=== PATIENT | female | born 1945 | race Caucasian/White ===

== ENCOUNTER 2017-06-23 12:25 | Inpatient (IN) | payer MEDICARE ==
[2017-06-23 12:25] VITALS: BMI 32.0
[2017-06-23] MEDS ORDERED: Sodium Chloride 0.9% 500 ML IV ONE (12:33)
--- NOTE | 2017-06-23 12:41 | C.PDOC ---
History Of Present Illness 71 yr old female brought in via EMS, presents to the ER s/p near syncopal episode. Patient is accompanied by daughter who states, the patient was ironing at home when she became dizzy and fell to the ground. Daughter states the patient was confused for few minutes but became more alert and oriented with time. Patient currently denies of chest pain, however states she had chest pain yesterday. Patient denies LOC, fever, SOB, nausea, vomiting, abdominal pain, neck pain, weakness or numbness. Time Seen by Provider: 06/23/17 12:31 Chief Complaint (Nursing): Dizziness/Lightheaded History Per: Patient, Family (Daughter) History/Exam Limitations: no limitations Onset/Duration Of Symptoms: Sudden Onset Activity At Onset Of Symptoms: Standing Past Medical History Reviewed: Historical Data, Nursing Documentation, Vital Signs Vital Signs: Last Vital Signs Temp 97.9 F 06/23/17 12:30 Pulse 44 L 06/23/17 16:38 Resp 16 06/23/17 16:38 BP 125/59 L 06/23/17 16:38 Pulse Ox 100 06/23/17 16:38 - Medical History PMH: Arthritis, HTN, Hypercholesterolemia, Parkinson's Disease - [facility] Procedures APPLICATION OF SPLINT (05/03/13) Family History: States: No Known Family Hx - Social History Hx Tobacco Use: No Hx Alcohol Use: No Hx Substance Use: No - Immunization History Hx Tetanus Toxoid Vaccination: No Hx Influenza Vaccination: No Hx Pneumococcal Vaccination: No Review Of Systems Except As Marked, All Systems Reviewed And Found Negative. Constitutional: Negative for: Fever Cardiovascular: Positive for: Chest Pain (None currently) Respiratory: Negative for: Shortness of Breath Gastrointestinal: Negative for: Nausea, Vomiting, Abdominal Pain Musculoskeletal: Negative for: Neck Pain Neurological: Positive for: Dizziness. Negative for: Weakness, Numbness Physical Exam - Physical Exam Appears: Non-toxic, No Acute Distress Skin: Warm, Dry, No Rash Head: Atraumatic, Normacephalic Oral Mucosa: Moist Neck: Normal, Normal ROM, Supple Chest: Symmetrical, No Tenderness Cardiovascular: Rhythm Regular, No Murmur Respiratory: Normal Breath Sounds, No Rales, No Rhonchi, No Wheezing Gastrointestinal/Abdominal: Normal Exam, Soft, No Tenderness, No Guarding, No Rebound Back: Normal Inspection, No CVA Tenderness Extremity: Normal ROM, No Swelling Neurological/Psych: Oriented x3, Normal Speech ED Course And Treatment - Laboratory Results Result Diagrams: 06/23/17 12:44 06/23/17 12:44 ECG: Interpreted By Me, Viewed By Me ECG Rhythm: Sinus Bradycardia Interpretation Of ECG: RBBB. Left axis deviation. Nonspecific T wave changes. Rate From EC (BPM) O2 Sat by Pulse Oximetry: 93 (RA) Pulse Ox Interpretation: Normal - Other Rad CXR X-Ray: Viewed By Me, Read By Radiologist Interpretation: PROCEDURE: CHEST RADIOGRAPH, 1 VIEW Technique: Single view portable semi erect @ 12:50. HISTORY: chest pain. COMPARISON: 01/31/2013. FINDINGS: LUNGS: Clear. PLEURA: No pneumothorax or pleural fluid seen. CARDIOVASCULAR: Cardiomegaly. No evidence of acute, significant cardiovascular disease. OSSEOUS STRUCTURES: No significant abnormalities. VISUALIZED UPPER ABDOMEN: Normal. OTHER FINDINGS: None. IMPRESSION: No active disease. No acute/significant interval changes. . Please note: No preliminary report/ innterpretation of this examination provided by emergency department personnel. - CT Scan/US CT - Head Other Rad Studies (CT/US): Read By Radiologist, Radiology Report Reviewed CT/US Interpretation: PROCEDURE: CT HEAD WITHOUT CONTRAST. HISTORY: dizziness. COMPARISON: Noncontrast head CT performed 02/27/13. TECHNIQUE: Axial computed tomography images were obtained through the head/brain without intravenous contrast. Radiation dose: Total exam DLP = 839.17 mGy-cm. This CT exam was performed using one or more of the following dose reduction techniques: Automated exposure control, adjustment of the mA and/or kV according to patient size, and/or use of iterative reconstruction technique. FINDINGS: HEMORRHAGE: No intracranial hemorrhage. BRAIN: Diffuse atrophy with prominence of the ventricles and sulci noted. No mass effect or edema. Bilateral basal ganglia calcifications. Intracranial atherosclerotic calcifications. Scattered white matter hypodensities, which are nonspecific, but often seen with chronic microvascular ischemic disease. Please note that MRI with diffusion imaging is more sensitive in the detection of acute ischemic event. VENTRICLES: No hydrocephalus. CALVARIUM: Unremarkable. PARANASAL SINUSES: Mucosal thickening and opacification involving the ethmoid air cells, sphenoid sinuses, and mbzq-[id number]-imps-right maxillary sinuses. MASTOID AIR CELLS: Unremarkable as visualized. No inflammatory changes. OTHER FINDINGS: None. IMPRESSION: Generalized atrophy. Nonspecific white matter changes. Mucosal thickening and opacification involving the ethmoid air cells, sphenoid sinuses, and xntf-iqfeatc-bgnt-right maxillary sinuses. Correlate clinically for sinusitis. Medical Decision Making Medical Decision Making: DDx: Dizziness and chest pain. PLAN: * CT - Head * CXR * EKG * Troponin * CBC * CMP * Urinalysis * Sodium Chloride IV NOTE: * Initially spoke to Dr. Birmingham regarding the patient who agreed to admit the patient under her services. However, I was informed later on Dr. Birmingham does not admit to [facility] and the patient is to go to Medicine documentation liaison. * Spoke to Dr. Gregg who agreed to admit patient for Bradycardia and dizziness. Disposition Discussed With Dr.: Valencia Borges Doctor Will See Patient In The: Hospital Counseled Patient/Family Regarding: Studies Performed, Diagnosis - Disposition Disposition: HOSPITALIZED Disposition Time: 14:30 Condition: FAIR - Clinical Impression Clinical Impression: Dizziness, Near syncope, Bradycardia - Scribe Statement The provider has reviewed the documentation as recorded by the Kezia[facility] S[facility] Muse Provider Attestation: All medical record entries made by the Lev were at my direction and personally dictated by me. I have reviewed the chart and agree that the record accurately reflects my personal performance of the history, physical exam, medical decision making, and the department course for this patient. I have also personally directed, reviewed, and agree with the discharge instructions and disposition.
[2017-06-23] MEDS ORDERED: Sodium Chloride 0.9% 1,000 ML ONE (12:43)
[2017-06-23 12:52] LABS: EOS # 0.3 K/uL (0.0-0.7); EOS % 6.2 % (0.0-4.0); LYMPH % 20.6 % (20.0-40.0); MEAN CORPUSCULAR HEMOGLOBIN 29.8 pg (27.0-31.0); MEAN CORPUSCULAR HGB CONC 33.7 g/dL (33.0-37.0); MONO # 0.3 K/uL (0.0-0.8); MONO % 6.8 % (0.0-10.0); NRBC % 0.1 % (0.0-2.0); RED CELL DISTRIBUTION WIDTH 15.3 % (11.5-14.5); WHITE BLOOD COUNT 4.6 K/uL (4.8-10.8)
[2017-06-23 12:53] LABS: MEAN CELL VOLUME 88.5 fL (81.0-99.0)
[2017-06-23 13:02] LABS: CHLORIDE 106 mmol/L (98-107); SODIUM 139 mmol/L (132-148)
[2017-06-23 13:03] LABS: POTASSIUM 3.7 mmol/L (3.6-5.2)
[2017-06-23 13:05] LABS: ALKALINE PHOSPHATASE 66 U/L (38-126); ALT/SGPT 16 U/L (9-52); AST/SGOT 10 U/L (14-36); BILIRUBIN,TOTAL 0.7 mg/dL (0.2-1.3); BLOOD UREA NITROGEN 34 mg/dL (7-17); CARBON DIOXIDE 22 mmol/L (22-30); GFR AFRICAN-AMERICAN 49
[2017-06-23 13:06] LABS: CALCIUM 8.7 mg/dl (8.6-10.4); GLUCOSE,RANDOM 97 mg/dL (65-105)
--- NOTE | 2017-06-23 13:28 | CT ---
PROCEDURE: CT HEAD WITHOUT CONTRAST. HISTORY: dizziness COMPARISON: Noncontrast head CT performed 02/27/13 TECHNIQUE: Axial computed tomography images were obtained through the head/brain without intravenous contrast. Radiation dose: Total exam DLP = 839.17 mGy-cm. This CT exam was performed using one or more of the following dose reduction techniques: Automated exposure control, adjustment of the mA and/or kV according to patient size, and/or use of iterative reconstruction technique. FINDINGS: HEMORRHAGE: No intracranial hemorrhage. BRAIN: Diffuse atrophy with prominence of the ventricles and sulci noted. No mass effect or edema. Bilateral basal ganglia calcifications. Intracranial atherosclerotic calcifications. Scattered white matter hypodensities, which are nonspecific, but often seen with chronic microvascular ischemic disease. Please note that MRI with diffusion imaging is more sensitive in the detection of acute ischemic event. VENTRICLES: No hydrocephalus. CALVARIUM: Unremarkable. PARANASAL SINUSES: Mucosal thickening and opacification involving the ethmoid air cells, sphenoid sinuses, and mtaf-xxmkieh-vglt-right maxillary sinuses. MASTOID AIR CELLS: Unremarkable as visualized. No inflammatory changes. OTHER FINDINGS: None. IMPRESSION: Generalized atrophy. Nonspecific white matter changes. Mucosal thickening and opacification involving the ethmoid air cells, sphenoid sinuses, and pkck-eyozsrs-tltl-right maxillary sinuses. Correlate clinically for sinusitis.
--- NOTE | 2017-06-23 13:31 | RAD ---
PROCEDURE: CHEST RADIOGRAPH, 1 VIEW Technique: Single view portable semi erect @ 12:50. HISTORY: chest pain COMPARISON: 01/31/2013 FINDINGS: LUNGS: Clear. PLEURA: No pneumothorax or pleural fluid seen. CARDIOVASCULAR: Cardiomegaly. No evidence of acute, significant cardiovascular disease. OSSEOUS STRUCTURES: No significant abnormalities. VISUALIZED UPPER ABDOMEN: Normal. OTHER FINDINGS: None. IMPRESSION: No active disease. No acute/significant interval changes. Please note: No preliminary report/ innterpretation of this examination provided by emergency department personnel. Move
--- NOTE | 2017-06-23 20:08 | CP.PCM.CON ---
History of Present Illness - History of Present Illness History of Present Illness: I was asked to see patient by Dr Gregg. Patient is a 71 year old female with a PMH HTN, previous CVA who presents with dizziness and syncope. The patient states she has had recent dizziness and lighheadedness. The symptoms have become progressive. The patient had a near syncopeal event. She was found to have sinus bradycardia in the ER. She denies current chest pain. Review of Systems - Constitutional Constitutional: absent: As Per HPI, Anorexia, Chills, Daytime Sleepiness, Excessive Sweating, Fatigue, Fever, Frequent Falls, Headache, Increased Appetite , Lethargy, Malaise, Night Sweats, Snoring, Sleep Apnea, Weight Gain, Weight Loss, Weakness, Other - EENT Eyes: absent: As Per HPI, Blind Spots, Blurred Vision, Change in Vision, Decreased Night Vision, Diplopia, Discharge, Dry Eye, Exophthalmos, Floaters, Irritation, Itchy Eyes, Loss of Peripheral Vision, Pain, Photophobia, Requires Corrective Lenses, Sees Flashes, Spots in Vision, Tunnel Vision, Other Visual Disturbances, Loss of Vision, Other Ears: absent: As Per HPI, Decreased Hearing, Ear Discharge, Ear Pain, Tinnitus, Abnormal Hearing, Disequilibrium, Dizziness, Other Nose/Mouth/Throat: absent: As Per HPI, Epistaxis, Nasal Congestion, Nasal Discharge, Nasal Obstruction, Nasal Trauma, Nose Pain, Post Nasal Drip, Sinus Pain, Sinus Pressure, Bleeding Gums, Change in Voice, Dental Pain, Dry Mouth, Dysphagia, Halitosis, Hoarsness, Lip Swelling, Mouth Lesions, Mouth Pain, Odynophagia, Sore Throat, Throat Swelling, Tongue Swelling, Facial Pain, Neck Pain, Neck Mass, Other - Cardiovascular Cardiovascular: Dyspnea, Syncope - Respiratory Respiratory: absent: As Per HPI, Cough, Dyspnea, Hemoptysis, Dyspnea on Exertion , Wheezing, Snoring, Stridor, Pain on Inspiration, Chest Congestion, Excessive Mucous Production, Change in Mucous Color, Pain with Coughing, Other - Gastrointestinal Gastrointestinal: absent: As Per HPI, Abdominal Pain, Belching, Bloating, Change in Bowel Habits, Change in Stool Character, Coffee Ground Emesis, Constipation, Cramping, Diarrhea, Dyspepsia, Dysphagia, Early Satiety, Excessive Flatus, Fecal Incontinence, Heartburn, Hematemesis, Hematochezia, Loose Stools, Melena, Nausea, Odynophagia, Temesmus, Vomiting, Other - Musculoskeletal Musculoskeletal: absent: As Per HPI, Abnormal Gait, Arthralgias, Atrophy, Back Pain, Deformity, Joint Swelling, Limited Range of Motion, Loss of Height, Muscle Cramps, Muscle Weakness, Myalgias, Neck Pain, Numbness, Radiating Pain into Limb, Stiffness, Tingling, Other - Integumentary Integumentary: absent: As Per HPI, Acne, Alopecia, Bleeding Lesions, Change in Hair, Change in Nails, Change in Pigmentation, Changing Lesions, Dry Skin, Erythema, Furuncle, Hirsutism, Lesions, New Lesions, Non-Healing Lesions, Photosensitivity, Pruritus, Rash, Skin Pain, Skin Ulcer, Sores, Striae, Swelling , Unusual Bruising, Wounds, Jaundice, Other - Neurological Neurological: absent: As Per HPI, Abnormal Gait, Abnormal Hearing, Abnormal Movements, Abnormal Speech, Behavioral Changes, Burning Sensations, Confusion, Convulsions, Disequilibrium, Dizziness, Numbness, Focal Weakness, Frequent Falls , Headaches, Lack of Coordination, Loss of Vision, Memory Loss, Paresthesias, Radicular Pain, Restless Legs, Sensory Deficit, Syncope, Tingling, Tremor, Vertigo, Weakness, Other Visual Disturbances, Other - Psychiatric Psychiatric: absent: As Per HPI, Abnormal Sleep Pattern, Anhedonia, Anxiety, Auditory Hallucinations, Behavioral Changes, Change in Appetite, Change in Libido, Confusion, Depression, Difficulty Concentrating, Hallucinations, Homicidal Ideation, Hopelessness, Irritability, Memory Loss, Mood Swings, Panic Attacks, Paranoia, Suicidal Ideation, Visual Hallucinations, Tactile Hallucinations, Other - Endocrine Endocrine: absent: As Per HPI, Change in Body Appearance, Change in Libido, Cold Intolorance, Deepening of Voice, Excessive Sweating, Fatigue, Flushing, Heat Intolorance, Increase in Ring/Shoe/Hat Size, Palpitations, Polydipsia, Polyphagia, Polyuria, Other - Hematologic/Lymphatic Hematologic: absent: As Per HPI, Easy Bleeding, Easy Bruising, Lymphadenopathy, Other Past Patient History - Past Social History Smoking Status: Never Smoked - CARDIAC Hx Hypercholesterolemia: Yes Hx Hypertension: Yes - NEUROLOGICAL Hx Parkinson's Disease: Yes - MUSCULOSKELETAL/RHEUMATOLOGICAL Hx Arthritis: Yes - PSYCHIATRIC Hx Substance Use: No - SURGICAL HISTORY Hx Eye Surgery: Yes (Glaucoma) Other/Comment: Bladder Mesh - ANESTHESIA Hx Anesthesia: Yes Hx Anesthesia Reactions: No Meds Allergies/Adverse Reactions: Allergies Allergy/AdvReac Type Severity Reaction Status Date / Time No Known Allergies Allergy Verified 06/23/17 12:37 - Medications Medications: Current Medications Carbidopa/Levodopa (Sinemet) 1 tab PO QID [facility] Enoxaparin Sodium (Lovenox) 40 mg SC DAILY [facility] Ferrous Sulfate (Feosol) 325 mg PO DAILY [facility] Hydrochlorothiazide (Microzide) 12.5 mg PO DAILY [facility] Losartan Potassium (Cozaar) 50 mg PO DAILY [facility] Pramipexole Dihydrochloride (Mirapex) 1 mg PO QID [facility] Physical Exam - Constitutional Appears: Non-toxic - Head Exam Head Exam: NORMAL INSPECTION - Eye Exam Eye Exam: Normal appearance - ENT Exam ENT Exam: Mucous Membranes Moist - Neck Exam Neck exam: Positive for: Normal Inspection - Respiratory Exam Respiratory Exam: NORMAL BREATHING PATTERN - Cardiovascular Exam Cardiovascular Exam: Bradycardia, REGULAR RHYTHM - GI/Abdominal Exam GI & Abdominal Exam: Normal Bowel Sounds - Rectal Exam Rectal Exam: Deferred - Extremities Exam Extremities exam: Negative for: pedal edema - Back Exam Back exam: NORMAL INSPECTION - Neurological Exam Neurological exam: Alert, Oriented x3 - Psychiatric Exam Psychiatric exam: Normal Affect - Skin Skin Exam: Normal Color Results - Vital Signs Recent Vital Signs: Last Vital Signs Temp 98 F 06/23/17 18:39 Pulse 53 L 06/23/17 18:39 Resp 18 06/23/17 18:39 BP 135/62 06/23/17 18:39 Pulse Ox 100 06/23/17 18:39 - Labs Result Diagrams: 06/23/17 12:44 06/23/17 12:44 Labs: Laboratory Results - last 24 hr 06/23/17 06/23/17 06/23/17 12:28 12:44 12:44 WBC 4.6 L RBC 2.83 L Hgb 8.4 L D Hct 25.0 L MCV 88.5 D MCH 29.8 MCHC 33.7 RDW 15.3 H Plt Count 212 MPV 8.0 Neut % (Auto) 65.4 Lymph % (Auto) 20.6 Story % (Auto) 6.8 Eos % (Auto) 6.2 H Baso % (Auto) 1.0 Neut # 3.0 Lymph # 1.0 Story # 0.3 Eos # 0.3 Baso # 0.0 Sodium 139 Potassium 3.7 Chloride 106 Carbon Dioxide 22 Anion Gap 15 BUN 34 H Creatinine 1.3 H Est GFR ( Amer) 49 Est GFR (Non-Af Amer) 41 POC Glucose (mg/dL) 138 H Random Glucose 97 Calcium 8.7 Total Bilirubin 0.7 AST 10 L ALT 16 Alkaline Phosphatase 66 Troponin I < 0.0120 NT-Pro-B Natriuret Pep 727 Total Protein 7.0 Albumin 3.4 L Globulin 3.5 Albumin/Globulin Ratio 1.0 - EKG Data EKG Interpreted by: Myself Assessment & Plan (1) Syncope Assessment and Plan: patient has bradycardia which could contribute to her symptoms. I recommend admission to telemetry. check TSH. chech echocardiogram. Patient may need PPM due to bifascicular block and symptoms. Status: Acute (2) Bradycardia Assessment and Plan: check TSH Status: Acute
--- NOTE | 2017-06-24 08:19 | CP.PCM.PN ---
Subjective - Date & Time of Evaluation Date of Evaluation: 06/24/17 Time of Evaluation: 08:00 - Subjective Subjective: patient has no chest pain. heart rate in the 60s. Objective - Vital Signs/Intake and Output Vital Signs (last 24 hours): Temp Pulse Resp BP Pulse Ox 97.9 F 59 L 20 153/64 H 97 06/24/17 07:20 06/24/17 07:20 06/24/17 07:20 06/24/17 07:20 06/24/17 07:20 - Medications Medications: Current Medications Carbidopa/Levodopa (Sinemet) 1 tab PO QID [facility] Last Admin: 06/23/17 21:27 Dose: 1 tab Enoxaparin Sodium (Lovenox) 40 mg SC DAILY [facility] Ferrous Sulfate (Feosol) 325 mg PO DAILY [facility] Hydrochlorothiazide (Microzide) 12.5 mg PO DAILY [facility] Losartan Potassium (Cozaar) 50 mg PO DAILY [facility] Pneumococcal Polyvalent Vaccine (Pneumovax 23 Vaccine) 0.5 ml IM .ONCE ONE Stop: 06/25/17 10:01 Pramipexole Dihydrochloride (Mirapex) 1 mg PO QID [facility] Last Admin: 06/23/17 21:27 Dose: 1 mg - Labs Labs: 06/23/17 12:44 06/23/17 12:44 - Constitutional Appears: Non-toxic - Head Exam Head Exam: NORMAL INSPECTION - Eye Exam Eye Exam: Normal appearance - ENT Exam ENT Exam: Mucous Membranes Moist - Neck Exam Neck Exam: Full ROM - Respiratory Exam Respiratory Exam: Decreased Breath Sounds - Cardiovascular Exam Cardiovascular Exam: REGULAR RHYTHM - GI/Abdominal Exam GI & Abdominal Exam: Normal Bowel Sounds - Rectal Exam Rectal Exam: Deferred - Extremities Exam Extremities Exam: Pedal Edema - Back Exam Back Exam: NORMAL INSPECTION - Neurological Exam Neurological Exam: Alert - Psychiatric Exam Psychiatric exam: Normal Affect - Skin Skin Exam: Normal Color Assessment and Plan (1) Syncope Assessment & Plan: check echocardiogram. monitor on telemetry Status: Acute (2) Bradycardia Assessment & Plan: hodl AV bia lelia Status: Acute
--- NOTE | 2017-06-24 09:59 | CP.PCM.PN ---
Subjective - Date & Time of Evaluation Date of Evaluation: 06/24/17 Time of Evaluation: 09:58 - Subjective Subjective: PGY 2 Progress Note- Dr. Gregg's service 71 year old female with past medical history significant for Parkinson's disease , HTN, Diabetes and Rheumatoid arthritis presents with complaints of dizziness. Patient states that she fell while at home. She denies any head trauma. She has been feeling dizzy for approximately one week. She thought that some of her symptoms were secondarily related to her parkinson's disease and consequently did not seek help sooner. She denies chest pain, palpitations or headaches at this time. PMHx- as stated above PSHx- bladder surgery Fam Hx- Dad of heart disease at age, half brother of MS at an unknown age Social- denies tobacco, alcohol or drug use Meds- Parkinson's medications ( could not recall the other meds) Allergies- NKDA PMD: Valencia Borges Objective - Vital Signs/Intake and Output Vital Signs (last 24 hours): Temp Pulse Resp BP Pulse Ox 97.9 F 59 L 20 153/64 H 97 06/24/17 07:20 06/24/17 07:20 06/24/17 07:20 06/24/17 07:20 06/24/17 07:20 - Medications Medications: Current Medications Carbidopa/Levodopa (Sinemet) 1 tab PO QID [facility] Last Admin: 06/23/17 21:27 Dose: 1 tab Enoxaparin Sodium (Lovenox) 40 mg SC DAILY [facility] Ferrous Sulfate (Feosol) 325 mg PO DAILY [facility] Hydrochlorothiazide (Microzide) 12.5 mg PO DAILY [facility] Losartan Potassium (Cozaar) 50 mg PO DAILY [facility] Pneumococcal Polyvalent Vaccine (Pneumovax 23 Vaccine) 0.5 ml IM .ONCE ONE Stop: 06/25/17 10:01 Pramipexole Dihydrochloride (Mirapex) 1 mg PO QID [facility] Last Admin: 06/23/17 21:27 Dose: 1 mg - Labs Labs: 06/23/17 12:44 06/23/17 12:44 - Constitutional Appears: Non-toxic, No Acute Distress, Other (resting tremor) - Head Exam Head Exam: ATRAUMATIC, NORMAL INSPECTION - Eye Exam Eye Exam: EOMI, Normal appearance, PERRL - ENT Exam ENT Exam: Mucous Membranes Moist - Neck Exam Neck Exam: Full ROM - Respiratory Exam Respiratory Exam: NORMAL BREATHING PATTERN. absent: Wheezes - Cardiovascular Exam Cardiovascular Exam: +S1, +S2. absent: JVD - GI/Abdominal Exam GI & Abdominal Exam: Soft - Extremities Exam Extremities Exam: Full ROM, Pedal Edema (1+ to trace) Additional comments: superficial veins noted - Back Exam Back Exam: Full ROM - Neurological Exam Neurological Exam: Alert, Awake, Oriented x3 - Psychiatric Exam Psychiatric exam: Normal Affect, Normal Mood - Skin Skin Exam: Normal Color, Warm Assessment and Plan (1) Syncope Assessment & Plan: Echo F/U Cardio reccs Status: Acute (2) Bradycardia Assessment & Plan: Echo Hold any meds that would decrease HR DANIELLE 1-2 negative. F/U DANIELLE 3 Status: Acute (3) HTN (hypertension) Assessment & Plan: HCTZ and Losartan Cont to monitor Status: Chronic (4) Diabetes mellitus Assessment & Plan: A1c ISS Accuchecks Status: Chronic (5) Parkinson disease Assessment & Plan: On Carbidopa/ Levodopa Status: Acute (6) Prophylactic measure Assessment & Plan: Lovenox daily GI prophylaxis not currently indicated Status: Acute - Assessment and Plan (Free Text) Assessment: Discussed with attending. All management and planning per Dr. Gregg.
[2017-06-24] MEDS ORDERED: Enoxaparin 40 mg Syringe SC SCH (10:00)
--- NOTE | 2017-06-24 23:47 | CARD ---
APPROVED REPORT EKG Measurement Heart [id number] SD [id number] [id number] <Conclusion> Sinus bradycardia Left axis deviation Right bundle branch block Abnormal ECG
[2017-06-25 07:49] LABS: BASO % 0.9 % (0.0-2.0); EOS # 0.4 K/uL (0.0-0.7); EOS % 9.5 % (0.0-4.0); HEMATOCRIT 30.1 % (34.0-47.0); LYMPH # 1.2 K/uL (1.0-4.3); LYMPH % 27.9 % (20.0-40.0); MEAN CELL VOLUME 87.6 fL (81.0-99.0); MEAN CORPUSCULAR HEMOGLOBIN 29.8 pg (27.0-31.0); MEAN PLATELET VOLUME 8.5 fL (7.2-11.7); MONO # 0.3 K/uL (0.0-0.8); MONO % 7.1 % (0.0-10.0); RED CELL DISTRIBUTION WIDTH 15.3 % (11.5-14.5); WHITE BLOOD COUNT 4.2 K/uL (4.8-10.8)
[2017-06-25 08:18] LABS: CHLORIDE 106 mmol/L (98-107)
[2017-06-25 08:19] LABS: POTASSIUM 3.9 mmol/L (3.6-5.2); SODIUM 141 mmol/L (132-148)
[2017-06-25 08:21] LABS: ALB/GLOB RATIO 1.3 (1.0-2.1); ALKALINE PHOSPHATASE 65 U/L (38-126); ALT/SGPT 15 U/L (9-52); AST/SGOT 12 U/L (14-36); BILIRUBIN,TOTAL 0.5 mg/dL (0.2-1.3); BLOOD UREA NITROGEN 19 mg/dL (7-17); CARBON DIOXIDE 25 mmol/L (22-30); GFR AFRICAN-AMERICAN > 60; GLUCOSE,RANDOM 93 mg/dL (65-105); PHOSPHOROUS 1.9 mg/dL (2.5-4.5); TOTAL PROTEIN 6.6 g/dL (6.3-8.3)
[2017-06-25 08:22] LABS: CALCIUM 8.8 mg/dl (8.6-10.4)
[2017-06-25] MEDS ORDERED: Enoxaparin 40 mg Syringe SC SCH (10:00)
[2017-06-25] MEDS ORDERED: Pneumococcal 23-Valent Vaccine IM ONE (10:00)
[2017-06-25] MEDS ORDERED: Potassium & Sodium Phosphate PO ONE (10:00)
[2017-06-25] MEDS ORDERED: Influenza Vaccine 60 mcg/0.5 mL SYR (4YR UP) IM ONE (10:00)
--- NOTE | 2017-06-25 12:58 | CP.PCM.PN ---
Subjective - Date & Time of Evaluation Date of Evaluation: 06/25/17 Time of Evaluation: 10:30 - Subjective Subjective: patient has no new complaints. wants to go home. Objective - Vital Signs/Intake and Output Vital Signs (last 24 hours): Temp Pulse Resp BP Pulse Ox 97.4 F L 61 18 157/75 H 95 06/25/17 07:35 06/25/17 07:35 06/25/17 07:35 06/25/17 07:35 06/25/17 07:35 Intake and Output: 06/25/17 06/25/17 06:59 18:59 Intake Total 360 Output Total 300 Balance 60 - Medications Medications: Current Medications Carbidopa/Levodopa (Sinemet) 1 tab PO QID [facility] Last Admin: 06/25/17 10:34 Dose: 1 tab Enoxaparin Sodium (Lovenox) 40 mg SC DAILY [facility] Last Admin: 06/25/17 10:34 Dose: 40 mg Ferrous Sulfate (Feosol) 325 mg PO DAILY [facility] Last Admin: 06/25/17 10:34 Dose: 325 mg Hydrochlorothiazide (Microzide) 12.5 mg PO DAILY [facility] Last Admin: 06/25/17 10:34 Dose: 12.5 mg Losartan Potassium (Cozaar) 50 mg PO DAILY [facility] Last Admin: 06/25/17 10:34 Dose: 50 mg Pramipexole Dihydrochloride (Mirapex) 1 mg PO QID [facility] - Labs Labs: 06/25/17 07:16 06/25/17 07:16 - Constitutional Appears: Non-toxic - Head Exam Head Exam: NORMAL INSPECTION - Eye Exam Eye Exam: Normal appearance - ENT Exam ENT Exam: Mucous Membranes Moist - Neck Exam Neck Exam: Full ROM - Respiratory Exam Respiratory Exam: NORMAL BREATHING PATTERN - Cardiovascular Exam Cardiovascular Exam: REGULAR RHYTHM - GI/Abdominal Exam GI & Abdominal Exam: Normal Bowel Sounds - Rectal Exam Rectal Exam: Deferred - Extremities Exam Extremities Exam: absent: Pedal Edema - Back Exam Back Exam: NORMAL INSPECTION - Neurological Exam Neurological Exam: Alert - Psychiatric Exam Psychiatric exam: Normal Affect - Skin Skin Exam: Normal Color Assessment and Plan (1) Syncope Assessment & Plan: patient has no current syncopal events. I discussed pacemaker previously, however she does not wish to have one. Patient can be discharged. i will place outpatient holter monitor. Status: Acute (2) Bradycardia Status: Acute
--- NOTE | 2017-06-25 13:02 | CP.PCM.PN ---
Subjective - Date & Time of Evaluation Date of Evaluation: 06/25/17 Time of Evaluation: 13:00 - Subjective Subjective: Progress note. Attending: Dr. Gregg Pt seen and examined at bedside. No acute distress, but pt tearful and wants to go home. No fevers, chills, vomiting, diarrhea, cp, sob. Objective - Vital Signs/Intake and Output Vital Signs (last 24 hours): Temp Pulse Resp BP Pulse Ox 97.4 F L 61 18 157/75 H 95 06/25/17 07:35 06/25/17 07:35 06/25/17 07:35 06/25/17 07:35 06/25/17 07:35 Intake and Output: 06/25/17 06/25/17 06:59 18:59 Intake Total 360 Output Total 300 Balance 60 - Medications Medications: Current Medications Carbidopa/Levodopa (Sinemet) 1 tab PO QID [facility] Last Admin: 06/25/17 10:34 Dose: 1 tab Enoxaparin Sodium (Lovenox) 40 mg SC DAILY [facility] Last Admin: 06/25/17 10:34 Dose: 40 mg Ferrous Sulfate (Feosol) 325 mg PO DAILY [facility] Last Admin: 06/25/17 10:34 Dose: 325 mg Hydrochlorothiazide (Microzide) 12.5 mg PO DAILY [facility] Last Admin: 06/25/17 10:34 Dose: 12.5 mg Losartan Potassium (Cozaar) 50 mg PO DAILY [facility] Last Admin: 06/25/17 10:34 Dose: 50 mg Pramipexole Dihydrochloride (Mirapex) 1 mg PO QID [facility] - Labs Labs: 06/25/17 07:16 06/25/17 07:16 - Constitutional Appears: Non-toxic, No Acute Distress - Head Exam Head Exam: ATRAUMATIC, NORMAL INSPECTION, NORMOCEPHALIC - Eye Exam Eye Exam: EOMI - ENT Exam ENT Exam: Mucous Membranes Moist - Neck Exam Neck Exam: Full ROM - Respiratory Exam Respiratory Exam: NORMAL BREATHING PATTERN. absent: Respiratory Distress - Cardiovascular Exam Cardiovascular Exam: +S1, +S2 - GI/Abdominal Exam GI & Abdominal Exam: Soft, Normal Bowel Sounds. absent: Tenderness - Extremities Exam Extremities Exam: Full ROM, Normal Inspection - Neurological Exam Neurological Exam: Alert, Awake, Oriented x3 - Psychiatric Exam Psychiatric exam: Anxious, Depressed - Skin Skin Exam: Dry, Intact, Normal Color, Warm Assessment and Plan - Assessment and Plan (Free Text) Assessment: This is a 71 year old female with past medical hx of HTN, CVA, Parkinson's, DM, RA presenting with (1) Syncope Assessment & Plan: Echo normal F/U Cardio recs (2) Bradycardia Assessment & Plan: Echo normal Hold any meds that would decrease HR troponins negative (3) HTN (hypertension) Assessment & Plan: HCTZ and Losartan Cont to monitor (4) Diabetes mellitus Assessment & Plan: A1c ISS Accuchecks (5) Parkinson disease Assessment & Plan: On Carbidopa/ Levodopa -continue pramipexole (6) Prophylactic measure Assessment & Plan: Lovenox daily GI prophylaxis not currently indicated discussed with Dr. Gregg
[2017-06-25 17:16] VITALS: BP 97/60; PULSE 65; RESP 20; TEMP 97.3; O2SAT 96
--- NOTE | 2017-06-25 23:41 | CARD ---
APPROVED REPORT EXAM: Two-dimensional and M-mode echocardiogram with Doppler and color Doppler. Other Information Quality : GoodRhythm : NSR INDICATION Dizziness and Vertigo Syncope BRADYCARDIA RISK FACTORS Hypertension Diabetes 2D DIMENSIONS IVSd0.9 (0.7-1.1cm)LVDd4.2 (3.9-5.9cm) PWd1.1 (0.7-1.1cm)LVDs2.8 (2.5-4.0cm) FS (%) 33.5 %LVEF (%)62.6 (>50%) M-Mode DIMENSIONS Left Atrium (MM)3.42 (2.5-4.0cm)Aortic Root3.67 (2.2-3.7cm) Aortic Cusp Exc.2.29 (1.5-2.0cm) Aortic Valve AI P 1/2 [id number] Mitral Valve MV E Rxmbmice65.4cm/sMV A Bwvrgfqe52.5cm/sE/A ratio0.8 TDI E/Lateral E'0.0E/Medial E'0.0 Tricuspid Valve TR Peak Leaulndw639vv/sTR Peak Gr.57rgJmFOMR46hvOg LEFT VENTRICLE The left ventricle is normal size. There is normal left ventricular wall thickness. Left ventricle systolic function is normal. The Ejection Fraction is 60-65%. There is normal LV segmental wall motion. Transmitral Doppler flow pattern is abnormal.Grade I-abnormal relaxation pattern. No left ventricle thrombus noted on this study. There is no ventricular septal defect visualized. There is no left ventricular aneurysm. RIGHT VENTRICLE The right ventricle is normal size. The right ventricular systolic function is normal. ATRIA The left atrium size is normal. The right atrium size is normal. AORTIC VALVE The aortic valve is moderately sclerotic. The aortic valve is probably trileaflet. There is trace to mild aortic regurgitation. There is no aortic valvular stenosis. There is no aortic valvular vegetation. MITRAL VALVE Mitral annular calcification is mild to moderate. There is no evidence of mitral valve prolapse. There is no mitral valve stenosis. Mitral regurgitation is mild. TRICUSPID VALVE The tricuspid valve is normal in structure. There is mild tricuspid regurgitation. Right ventricular systolic pressure is estimated at less than 30 mmHg. There is no pulmonary hypertension. There is no tricuspid valve prolapse or vegetation. There is no tricuspid valve stenosis. PULMONIC VALVE The pulmonic valve is not well visualized. There is trace pulmonic valvular regurgitation. GREAT VESSELS The aortic root is normal in size. The IVC is normal in size and collapses >50% with inspiration. PERICARDIAL EFFUSION There is no pericardial effusion. There is no pleural effusion. <Conclusion> The left ventricle is normal size. Left ventricle systolic function is normal. The Ejection Fraction is 60-65%. Transmitral Doppler flow pattern is abnormal.Grade I-abnormal relaxation pattern. The right ventricle is normal size. The right ventricular systolic function is normal. The left atrium size is normal. The right atrium size is normal. Mitral regurgitation is mild. There is mild tricuspid regurgitation. There is trace to mild aortic regurgitation. There is trace pulmonic valvular regurgitation.
== END 2017-06-25 16:55 | disposition home or self-care (01) | DRG 310 ==
LOC: C.ER 12:25 → C.9E 14:32 → C.6T 18:54
PROVIDERS: ADMIT Internal Medicine Pulmonary Disease; ATTEND Internal Medicine Pulmonary Disease
DX: R00.1 Bradycardia, unspecified (principal); G20 Parkinson's disease; R55 Syncope and collapse; H40.9 Unspecified glaucoma; E78.00 Pure hypercholesterolemia, unspecified; Z86.73 Personal history of transient ischemic attack (TIA), and cerebral infarction without residual deficits

== ENCOUNTER 2018-06-09 19:09 | Emergency (ER) | payer MEDICARE ==
[2018-06-09 19:10] VITALS: BMI 32.0
[2018-06-09 20:04] VITALS: TEMP 98.2; O2SAT 96
--- NOTE | 2018-06-09 20:42 | C.PDOC ---
History Of Present Illness 72 year old female presents to the ED for evaluation after she missed a step and tumbled down the stairs earlier today. Patient is c/o right-sided chest wall and right shoulder pain. She denies head injury and LOC. - HPI Chief Complaint (Nursing): Trauma History Per: Patient History/Exam Limitations: no limitations Onset/Duration Of Symptoms: Hrs Injury Occurred (Timing): Just Before Arrival Location Of Injury: Right: Shoulder Additional History Per: Patient Past Medical History Reviewed: Historical Data, Nursing Documentation, Vital Signs Vital Signs: Last Vital Signs Temp 98.2 F 06/09/18 19:43 Pulse 71 06/09/18 19:43 Resp 14 06/09/18 19:43 BP 128/69 06/09/18 19:43 Pulse Ox 96 06/09/18 19:43 - Medical History PMH: Arthritis, HTN, Hypercholesterolemia, Parkinson's Disease Surgical History: No Surg Hx - [facility] APPLICATION OF SPLINT (05/03/13) Family History: States: Unknown Family Hx - Social History Hx Tobacco Use: No Hx Alcohol Use: No Hx Substance Use: No - Immunization History Hx Tetanus Toxoid Vaccination: No Hx Influenza Vaccination: No Hx Pneumococcal Vaccination: No Review Of Systems Cardiovascular: Positive for: Other (right-sided chest wall pain ) Musculoskeletal: Positive for: Shoulder Pain (right ) Neurological: Negative for: Other (head injury, LOC ) Physical Exam - Physical Exam Appears: Non-toxic, No Acute Distress Skin: Normal Color, Warm, Dry Head: Atraumatic, Normacephalic Eye(s): bilateral: Normal Inspection Oral Mucosa: Moist Neck: Supple Chest: Symmetrical, No Deformity, Tenderness (to right lateral chest wall ) Cardiovascular: Rhythm Regular, No Murmur Respiratory: Normal Breath Sounds, No Rales, No Rhonchi, No Wheezing Extremity: Normal ROM, Tenderness (right shoulder ), Capillary Refill (less than 2 seconds ) Neurological/Psych: Oriented x3, Normal Speech, Normal Cognition ED Course And Treatment O2 Sat by Pulse Oximetry: 96 (on RA) Pulse Ox Interpretation: Normal - Other Rad right ribs X-Ray: Interpreted by Me Interpretation: possible non-displaced fracture of right 7 th rib - CT Scan/US CT chest Other Rad Studies (CT/US): Read By Radiologist, Radiology Report Reviewed CT/US Interpretation: THORACIC CT WITHOUT CONTRAST. THE THYROID RIGHT LOBE IS ENLARGED MEASURING 4.6 X 5.1 CM IN CROSS-SECTIONAL AREA AND DEMONSTRATES SEVERAL CALCIFICATIONS, SOME OF WHICH APPEAR IN A INTERRUPTED CIRCULAR PATTERN. THE LEFT THYROID LOBE MEASURES APPROXIMATELY 2.2 CM IN DIAMETER AND HAS A LOW ATTENUATION CENTRAL AREA MEASURING 18 MM. THE TRACHEA IS DEVIATED TO THE LEFT. tthe right lobe of the thyroid compresses the trachea and courses posterior to the trachea almost abutting the aortic arch. tthere is no clinically sign ificant mediastinal adenopathy. The heart is enlarged in transverse diameter. the thoracic aorta is of normal caliber. the LAD is heavily calcified, and the LCA and RCA are calcified to a slightly lesser extent. there are no consolidations, masses, or focal parenchymal distortion . Impressions: Enlarged right lobe of the thyroid wrapping around the posterior aspect of the airway with partial airway compression. Cardiomegaly. Grossly enlarged right lobe of the thyroid correlate clinically. . Electronically signed on Jun 09, 2018 9:18:53 PM EDT by: Jose Jones M.D., Certified by [facility] Progress Note: CT Chest and Right shoulder XR ordered and reviewed. Toradol IVP given. Disposition Counseled Patient/Family Regarding: Diagnosis - Disposition Referrals: Valencia Borges [Staff Provider] - Disposition: HOME/ ROUTINE Disposition Time: 22:30 Condition: STABLE Prescriptions: Naproxen 375 mg PO TIDPC #14 tablet Instructions: Bruised Rib (DC) Forms: [facility] (Nigerien), Gen Discharge Inst Azeri Print Language: SLOVAK - POA Present On Arrival: None - Clinical Impression Clinical Impression: Rib injury - Scribe Statement The provider has reviewed the documentation as recorded by the Scribe (Angie Justice) Provider Attestation: All medical record entries made by the Scribe were at my direction and personally dictated by me. I have reviewed the chart and agree that the record accurately reflects my personal performance of the history, physical exam, medical decision making, and the department course for this patient. I have also personally directed, reviewed, and agree with the discharge instructions and disposition.
[2018-06-09 22:59] VITALS: BP 149/81; PULSE 78; RESP 18
--- NOTE | 2018-06-10 09:19 | RAD ---
Date of service: 06/09/2018 PROCEDURE: Radiographs of the Chest and Right Ribs. HISTORY: right chest wall injury COMPARISON: None available. TECHNIQUE: Frontal radiograph of the chest and multiple oblique radiographs of the right ribs were obtained. FINDINGS: RIGHT RIBS: No fracture or focal lesion visualized. LUNGS: Clear. PLEURA: No pneumothorax or pleural fluid. CARDIOVASCULAR: Normal sized heart. No pulmonary vascular congestion. OTHER FINDINGS: Thoraco lumbar exuberant spondylosis and mild scoliosis. Degenerative type wedging throughout the thoracic spine also noted. IMPRESSION: No right rib radiographic pathology noted. No rib fracture or lytic lesion noted. Other findings as above.
--- NOTE | 2018-06-10 09:28 | RAD ---
Date of service: 06/09/2018 PROCEDURE: Radiographs of the Right Shoulder HISTORY: injury COMPARISON: No prior. FINDINGS: BONES: No right shoulder fracture noted There is trace superior bulging cortex of 1 rib probably relating to a subtle remote old fracture of the same. No acute fracture here bleed present. JOINTS: Glenohumeral and acromioclavicular arthrosis. SOFT TISSUES: Normal. OTHER FINDINGS: Apparent scoliosis and thoracic spondylosis. IMPRESSION: No right shoulder fracture. Right shoulder arthrosis Other findings as above.
--- NOTE | 2018-06-10 12:03 | CT ---
Date of service: 06/09/18 CT chest without IV contrast Indication: Right chest injury Technique: Contiguous axial images were obtained through the chest without intravenous contrast enhancement. Sagittal and coronal reconstructions were generated and reviewed. This CT exam was performed using 1 or more of the following dose reduction techniques: Automated exposure control, adjustment of the MAA and/or kV according to patient size, and/or use of iterative reconstruction technique. Radiation dose (DLP): 424.47 MGy-cm. Comparison: Chest x-ray performed 06/23/17 Findings: Markedly heterogeneous thyroid gland containing several calcifications. Extensive enlargement and substernal extension of the right lobe thyroid gland with deviation of the trachea at the left. Limited visualization of the noncontrast mediastinal and hilar vascular structures appear grossly unremarkable. Cardiomegaly. Dense coronary artery calcifications. Atherosclerotic calcifications of the aorta and branches. No focal consolidation. No pleural effusion. No pneumothorax. No suspicious pulmonary nodules measuring greater than 5 mm. Small hiatal hernia. Limited visualization of the noncontrast upper abdomen appears grossly unremarkable. Degenerative changes of the spine. Scoliosis. Impression: No acute traumatic pathology identified. Markedly heterogeneous thyroid gland containing several calcifications. Extensive enlargement and substernal extension of the right lobe thyroid gland with deviation of the trachea at the left. Correlate clinically. Cardiomegaly. Dense coronary artery calcifications. Preliminary impression was provided by [employer].
== END 2018-06-09 22:59 | disposition home or self-care (01) ==
LOC: C.ER 19:09
DX: S29.9XXA Unspecified injury of thorax, initial encounter (principal); W10.9XXA Fall (on) (from) unspecified stairs and steps, initial encounter; Y92.9 Unspecified place or not applicable
CPT/HCPCS: 71100; 71250; 73030; 82948; 96374; 99285; J1885